=== PATIENT | female | born 1935 | race Caucasian/White ===

== ENCOUNTER 2017-10-15 10:00 | Observation (INO) | payer MEDICARE, BC, SELFPAY ==
[2017-10-15] VITALS (11 sets, daily range): BP systolic 135–193; BP diastolic 63–91; PULSE 61–80; RESP 15–21; TEMP 35.8–37; O2SAT 95–99; BMI 33.0; BMI 32.4
--- NOTE | 2017-10-15 10:19 | EKG12_ITS ---
Test Reason : FATIGUE Blood Pressure : / mmHG Vent. Rate : 061 BPM Atrial Rate : 061 BPM P-R Int : 170 ms QRS Dur : 084 ms QT Int : 366 ms P-R-T Axes : 022 020 000 degrees QTc Int : 368 ms Normal sinus rhythm Nonspecific T wave abnormality Confirmed by KEVEN PATTERSON, CLARISA ([id number]), fashion editor FREDERICK JAMES ([id number]) on 10/19/2017 1:03:19 PM Referred By: LANCE Confirmed By:CLARISA BACA MD
--- NOTE | 2017-10-15 10:22 | RAD_ITS ---
STUDY: X-RAY CHEST REASON FOR EXAM: Female, 81 years old. Shortness of breath, feeling faint TECHNIQUE: Single AP portable view of the chest. COMPARISON: None. FINDINGS: The vascular markings are mildly prominent. There is trace blunting of the right cardiophrenic angle. There is no demonstrated pleural abnormality. There is mild cardiac enlargement. Normal mediastinum and willa. Normal visualized pulmonary arteries. There is atherosclerotic calcification of the aortic arch with tortuosity. There are diffuse degenerative changes of the visualized thoracic spine. Normal visualized ribs, clavicles, and shoulders. There is no demonstrated abnormality of the visualized soft tissue structures of the upper abdomen. RAD/Chest 1 View (Portable) IMPRESSION: Findings suspicious for mild vascular congestion. Right middle lobe atelectasis. Cardiomegaly. Electronically Signed: Agueda Blood MD at 11:18 EDT Tel , Service support ,
--- NOTE | 2017-10-15 10:25 | ED.DCSUM_ITS ---
- ER Visit Summary Date of Service: 10/15/17 Chief Complaint: Feeling faint History of Present Illness: The patient is a 81 F who states she was sitting at the breakfast table this morning approximately hour and a half prior to arrival and states she suddenly felt lightheaded as if she may pass out. She denies having chest pain, palpitations, shortness of breath, or headache during the episode. She states she had a similar episode last summer that was attributed to dehydration. Past history significant for diabetes, hypertension, high cholesterol, and RLS. She has had cardiac bypass surgery and cardiac stent. Physical Examination: Blood pressure is 193/88, temperature 96.4, heart rate 80 , respiratory rate 15, pulse ox 97% on room air. Patient is in no acute distress and is nontoxic appearing. Head and neck examination is normal. Heart is regular rate and rhythm. Palpable pulses are noted throughout. Lungs are clear with good air movement throughout. Abdomen is soft and nontender. Bowel sounds are noted. Extremity examination is unremarkable with full range of motion. Neurologic examination reveals no focal deficits. Test Results: EKG is sinus at 61 with nonspecific T-wave flattening. Chest x- ray shows mild vascular congestion. There is evidence of right middle lobe atelectasis. CBC and chemistry studies are remarkable for glucose of 183, BUN 24, creatinine 1.53. I do not have prior values available to compare. Urinalysis is unremarkable. Troponin is less than 0.015. Emergency Department Course and Treatment: Patient is given IV fluids. On repeat examination she states that after she ambulated to the restroom and back she felt short of breath. Nursing staff was with her and placed her on the monitor with no change in her vital signs. Patient then tells me after the nurse left the room she did get lightheaded again and had chest pressure into her back slightly. Those symptoms are now completely resolved and she has no complaints currently. In light of this d-dimer is added. It is 0.61, which is normal when adjusted for age. Patient will be admitted for further monitoring. Treatment Plan: [] Disposition: Admit Impression: Near syncope This note was generated with [employer] dictation software. It may contain incorrect words, spelling, and punctuation that were not noted in review of the chart prior to signing ED Disposition - Plan for ED Patient: Chief Complaint: Fatigue
[2017-10-15 10:31] LABS: Absolute Lymphocyte Count 2.35 X10^3/ul (0.83-4.51); Absolute Neutrophil Count 3.8 X10^3/uL (2.0-7.7); Basophil# 0.03 X10^3/uL; Basophil% 0.4 % (0-1); Eosinophil# 0.23 X10^3/uL; Eosinophils% 3.3 % (0-5); Hematocrit 41.4 % (37-47); Hemoglobin 13.6 g/dl (12.0-15.0); Lymphocyte # 2.35 X10^3/ul (4.0); Lymphocyte % 33.7 % (19-41); Mean Corp Hgb Conc 32.9 g/gl (32-36); Mean Corpuscular Hgb 30.3 pg (27.0-32.0); Mean Corpuscular Volume 92.2 fL (81-99); Mean Platelet Vol. 9.9 fl (6.2-12.0); Monocyte# 0.52 X10^3/uL; Monocyte% 7.5 % (0-10); Neutrophil # 3.83 X10^3/uL (2.7-7.7); Platelet Count 259 K/mm3 (150-450); RBC Distribution Width CV 12.3 % (11.6-14.6); RBC Distribution Width SD 41.6 fl (35.1-43.9); Red Blood Count 4.49 M/mm3 (4.2-5.4)
[2017-10-15 10:32] LABS: POSITIVE COUNT NO; POSITIVE DIFFERENTIAL NO; POSITIVE MORPHOLOGY NO
[2017-10-15] MEDS: 0.9% Normal Saline 1,000 ML 150 ML IV (10:33)
[2017-10-15 10:49] LABS: Anion Gap 9 (5-15); BUN 24 mg/dL (7-18); BUN/Creat Ratio 15.7 RATIO (10-20); Calcium,Total 9.6 mg/dL (8.5-10.1); Chloride 102 mmol/L (98-107); Creatinine, Serum 1.53 mg/dL (0.55-1.02); EST Glomerular Filtration Rate 35 mL/min (>60); Est Glom Filt Rate - Afr Amer 42 mL/min (>60); Glucose 183 mg/dL (74-106); Potassium 3.8 mmol/L (3.5-5.1); Sodium Level 137 mmol/L (136-145)
[2017-10-15 11:13] LABS: Mucous, Urine 0 SEEN /hpf (<or=2+); Red Blood Cells-Urine 0 SEEN /hpf (0-5)
[2017-10-15 11:18] LABS: Color, Urine Yellow (Yellow); Glucose, Dipstick Normal (Normal); Ketone-Dipstick Negative (Negative); Leukocyte Esterase-Dipstick 25 /ul (Negative); Nitrite-Dipstick Negative (Negative); Occult Blood-Urine 25 /ul (Negative); Protein-Dipstick Negative (Negative); Urine Bilirubin Dipstick Negative (Negative); Urine Clarity Clear (Clear); Urine Urobilinogen Normal (Normal)
[2017-10-15 11:24] LABS: Bacteria RARE /hpf (None Seen); Squamous Epithelial Cells - UA 0-5 SEEN /hpf (5-10); White Blood Cells 0-5 SEEN /hpf (0-5)
[2017-10-15 12:07] LABS: D-Dimer Quantitative (DVT/PE) 0.61 FEU/ug/m (0.27-0.49)
--- NOTE | 2017-10-15 12:19 | ECHOCS_ITS ---
Reason For Study: Syncope Procedure This was a 2D Doppler, Color Flow transthoracic echocardiogram. Exam performed portable in patient room. Left Ventricle Normal LV size. Left ventricular systolic function is normal. The estimated ejection fraction is 65 %. Transmitral diastolic flow velocities suggest mild (stage 1) diastolic dysfunction (reversed pattern). No regional wall motion abnormalities noted. Right Ventricle Normal RV size. Normal systolic function. Atria Normal left atrium. Normal right atrium. Mitral Valve Normal mitral valve. Trivial eccentric mitral valve insufficiency. Tricuspid Valve Normal tricuspid valve. Mild (1+) tricuspid valve insufficiency. Pulmonary artery systolic pressure is 30 mmHg. Aortic Valve Trisinus/trileaflet aortic valve. Mild focal aortic valve calcification. Trivial aortic valve insufficiency. Pulmonic Valve The pulmonic valve is not well visualized. Great Vessels Normal aortic root. The pulmonary artery is normal size. Normal inferior vena cava. Pericardium/Pleural No pericardial effusion. Medication Diluted definity 4ml given slow IV push to enhance endocardial definition. MMode/2D Measurements & Calculations LVIDd: 4.9 cm IVSd: 1.0 cm LVOT diam: 2.0 cm LVIDs: 3.0 cm LVPWd: 0.73 cm LVOT area: 3.1 cm2 FS: 37.4 % Ao root diam: 2.9 cm LAV(MOD-sp4): 37.5 ml LA dimension: 3.6 cm LA A4 area: 14.0 cm2 RA A4 area: 15.6 cm2 Time Measurements MV dec time: 0.25 sec Doppler Measurements & Calculations MV E max denny: 81.9 cm/sec Lat Peak E' Denny: 9.9 cm/sec Med Peak E' Denny: 10.5 cm/sec MV A max denny: 103.4 cm/sec E/E' lat: 8.2 E/E' med: 7.8 MV E/A: 0.79 MV V2 max: 104.0 cm/sec MV P1/2t max denny: 97.3 cm/sec Ao V2 max: 205.2 cm/sec MV max P.3 mmHg MV P1/2t: 71.2 msec Ao max P.9 mmHg MV V2 mean: 63.2 cm/sec MV dec slope: 400.2 cm/sec2 Ao V2 mean: 124.7 cm/sec MV mean P.8 mmHg MVA(P1/2t): 3.1 cm2 Ao mean P.4 mmHg MV V2 VTI: 28.7 cm Ao V2 VTI: 44.5 cm MVA(VTI): 3.6 cm2 VICKY(I,D): 2.3 cm2 VICKY(V,D): 1.8 cm2 LV V1 max: 119.3 cm/sec SV(LVOT): 102.2 ml PA V2 max: 111.7 cm/sec LV V1 max P.7 mmHg LV V1 mean P.3 mmHg LV V1 mean: 85.6 cm/sec LV V1 VTI: 32.5 cm TR max denny: 261.4 cm/sec TR max P.3 mmHg Interpretation Summary Normal LV size. Left ventricular systolic function is normal. The estimated ejection fraction is 65 %. Transmitral diastolic flow velocities suggest mild (stage 1) diastolic dysfunction (reversed pattern). Mild (1+) tricuspid valve insufficiency. Ordering Physician: Heath Barreto Referring Physician: Ernestina PCP Performed By: José Miguel Noonan RCS
--- NOTE | 2017-10-15 13:08 | PCM.HP.STD ---
Problem List (1) Pre-syncope Status: Acute (2) Positive D dimer Status: Acute (3) DM2 (diabetes mellitus, type 2) Status: Chronic Qualifiers: Diabetes mellitus emt intermediate insulin use: without emt intermediate use (4) CAD (coronary artery disease) Status: Chronic Qualifiers: Coronary Disease-Associated Artery/Lesion type: [place] artery (5) Essential (primary) hypertension Status: Chronic (6) Renal failure Status: Acute Qualifiers: Renal failure chronicity: unspecified chronicity Qualified Code(s): N19 - Unspecified kidney failure (7) BMI 33.0-33.9,adult Status: Chronic History of Present Illness Date of Admission: 10/15/17 Chief Complaint: Feeling faint The patient is a 81 year old F with past medical history significant for CAD with previous stent placement, hypertension, diabetes mellitus type 2 who presents with feeling of lightheadedness. Patient symptoms occurred while having breakfast. Patient denied any shortness of breath no nausea no vomiting. Patient had recently traveled from [place] to [place] on a 10 hour journey.. Patient was noted to have elevated d-dimer whilst in the emergency department however CT scan was not PCU since the d-dimer was within normal range when adjusted for age. Patient also did have another episode of fainting spell in the ED at this time associated with chest discomfort located in the retrosternal region radiating to the back to both arms. Her initial set of cardiac enzymes came back unremarkable however given her presentation patient was admitted to a monitored bed for subsequent workup. Past Medical History Past Medical History (Chronic Problems): Chronic Problems DM2 (diabetes mellitus, type 2) (Chronic) CAD (coronary artery disease) (Chronic) Essential (primary) hypertension (Chronic) BMI 33.0-33.9,adult (Chronic) Allergies No Known Allergies Allergy (Verified 10/15/17 10:05) Home Medications: Ambulatory Orders Medication Instructions Recorded Alpha Lipoic Acid 600 mg PO DAILY 10/15/17 Atenolol [Tenormin] 25 mg PO DAILY 10/15/17 Cyanocobalamin (Vitamin B-12) 1,000 mcg PO DAILY 10/15/17 [Vitamin B-12] Linagliptin [Tradjenta] 5 mg PO DAILY 10/15/17 Losartan Potassium 50 mg PO DAILY 10/15/17 Methimazole [Tapazole] 2.5 mg PO DAILY 10/15/17 Risedronate Sodium [Actonel] 150 mg PO UD 10/15/17 Simvastatin 40 mg PO DAILY 10/15/17 Smoking Status: Former smoker - *Family History Maternal History Items: No pertinent history Review of Systems Constitutional: Denies: Anorexia, Chills, Fever, Night Sweats, Weight Change HEENT: Denies: Head Aches, Sinus Congestion, Sinus Drainage Cardiovascular: Reports: Chest Pain, Light Headedness, Syncope. Denies: Orthopnea, Palpitations, Paroxysmal Noc. Dyspnea Respiratory: Denies: Cough, Shortness of breath at rest, Shortness of breath upon exertion, Sputum production Gastrointestinal: Denies: Abdominal Pain, Hematemesis, Hematochezia, Nausea, Melena, Vomiting Genitourinary: Denies: Dysuria, Frequency, Hematuria, Urgency Musculoskeletal: Denies: Joint Pain, Joint Tenderness Skin: Denies: Rash Neurological: Denies: Focal weakness, Numbness, Tingling Psychiatric: Denies: Homicidal Ideations, Suicidal Ideations Hematologic/ Lymphatic: Denies: Easy Bruising, Easy Bleeding VTE Information - Inpt Only VTE Present on Admission: No VTE Mechan Device Prophylaxis: Knee High LAM Hose VTE Pharm Prophylaxis ordered?: Yes Patient Problems: Active and Suspected Problems Pre-syncope (Acute) Positive D dimer (Acute) Renal failure (Acute) Objective: GENERAL: cooperative . HEENT: Clear conjunctiva, NECK; supple, normal thyroid, no distended JVD. CHEST: Diminished to auscultation bilaterally, HEART: Regular S1 S2, no audible murmurs ABDOMEN: soft, non-tender, normoactive bowel sounds, RECTAL: deferred EXTREMITIES: No edema, no clubbing, no cyanosis. 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 SKIN: No Rash - Physical Exam Vital Signs Temp Pulse Resp BP Pulse Ox 96.4 F L 68 18 148/70 H 95 10/15/17 10:01 10/15/17 12:02 10/15/17 12:02 10/15/17 12:02 10/15/17 12:02 Oxygen Delivery Method Room Air Weight: 79.4 kg Body Mass Index (BMI) 33.0 Laboratory Tests Past 24 Hrs 10/15/17 10/15/17 10/15/17 10:23 10:23 10:23 WBC 7.0 RBC 4.49 Hgb 13.6 Hct 41.4 MCV 92.2 MCH 30.3 MCHC 32.9 RDW 12.3 RDW Differential 41.6 Plt Count 259 MPV 9.9 Immature Gran % (Auto) 0.100 Neut % (Auto) 55.0 Lymph % (Auto) 33.7 [place] % (Auto) 7.5 Eos % (Auto) 3.3 Baso % (Auto) 0.4 Absolute Neuts (auto) 3.8 Absolute Lymphs (auto) 2.35 Total Counted Not Reportable D-Dimer Quant (PE/DVT) 0.61 H* Sodium 137 Potassium 3.8 Chloride 102 Carbon Dioxide 26.0 Anion Gap 9 BUN 24 H Creatinine 1.53 H Estim Creat Clear Calc 22.50 Est GFR (MDRD) Af Amer 42 L Est GFR (MDRD) Non-Af 35 L BUN/Creatinine Ratio 15.7 Glucose 183 H Calcium 9.6 Troponin I < 0.015 Urine Color Urine Clarity Urine pH Ur Specific [place] Urine Protein Urine Glucose (UA) Urine Ketones Urine Occult Blood Urine Nitrite Urine Bilirubin Urine Urobilinogen Ur Leukocyte Esterase Urine RBC Urine WBC Ur Squamous Epith Cells Urine Bacteria Urine Mucus 10/15/17 11:05 WBC RBC Hgb Hct MCV MCH MCHC RDW RDW Differential Plt Count MPV Immature Gran % (Auto) Neut % (Auto) Lymph % (Auto) [place] % (Auto) Eos % (Auto) Baso % (Auto) Absolute Neuts (auto) Absolute Lymphs (auto) Total Counted D-Dimer Quant (PE/DVT) Sodium Potassium Chloride Carbon Dioxide Anion Gap BUN Creatinine Estim Creat Clear Calc Est GFR (MDRD) Af Amer Est GFR (MDRD) Non-Af BUN/Creatinine Ratio Glucose Calcium Troponin I Urine Color Yellow Urine Clarity Clear Urine pH 6.0 Ur Specific [place] 1.010 Urine Protein Negative Urine Glucose (UA) Normal Urine Ketones Negative Urine Occult Blood 25 H Urine Nitrite Negative Urine Bilirubin Negative Urine Urobilinogen Normal Ur Leukocyte Esterase 25 H Urine RBC 0 SEEN Urine WBC 0-5 SEEN Ur Squamous Epith Cells 0-5 SEEN Urine Bacteria RARE Urine Mucus 0 SEEN Assessment/Plan All Active Problems Pre-syncope (Acute) Positive D dimer (Acute) Renal failure (Acute) Patient is a 81 year old lady with past medical history cigar for CAD, hypertension, diabetes mellitus type 2 presented with presyncope 1. Presyncope: Patient has been admitted to a monitored bed for continuous telemetry, as part of a management ordered a 2D echo cardiac enzymes. Patient also had elevated d-dimer on admission in view of her recent long travel CTA of the chest was ordered to rule out VTE as a possible cause of her presyncope 2. CAD with previous stent placement; patient is on both beta blockers as well as ARB 3. Renal failure baseline creatinine unknown patient losartan was held resuscitated with IV fluids with subsequent BMP ordered for the morning 4. Diabetes mellitus type 2 patient is on Tradjenta did continue and also placed on Accu-Cheks before meals and at bedtime with sliding scale coverage 5. Hypertension-blood pressure controlled, home medications except for losartan continued with dose adjustment as needed 6. Elevated d-dimer patient was empirically started on therapeutic Lovenox while CTA of the chest after rehydration ordered to rule out PTE 7. Obesity with BMI of 33.1 lifestyle modification including weight loss advised 8. DVT prophylaxis patient is on Lovenox Active Medications Acetaminophen (Tylenol) 650 mg PO Q6H PRN PRN PRN Reason: Mild Pain (scale 0-3)/T>100.7 Atenolol (Tenormin (Beta Dominique)) 25 mg PO DAILY CONCEPCION Cyanocobalamin (Vitamin B12) 1,000 mcg PO DAILY CONCEPCION Dextrose (D50w Syringe) 0 gm IV X1 PRN; Protocol PRN Reason: Hypoglycemia Docusate Sodium (Colace) 200 mg PO BID PRN PRN PRN Reason: Constipation Enoxaparin Sodium (Lovenox) 80 mg 1 mg/kg (80 mg) SC Q12 CONCEPCION Glucagon () 1 mg IM .X1 PRN PRN Reason: Hypoglycemia Sodium Chloride () 1,000 mls @ 150 mls/hr IV .Q6H40M [facility] Last Admin: 10/15/17 10:33 Dose: 150 mls/hr Potassium Chloride/Sodium Chloride (Kcl 20meq In 0.45% Ns 1000ml) 1,000 mls @ 150 mls/hr IV .Q6H40M [facility] Stop: 10/16/17 08:19 Insulin Human Lispro (Humalog Kwikpen (Bkc)) 0 unit SQ ACHS CONCEPCION PRN Reason: Protocol Linagliptin (Tradjenta) 5 mg PO DAILY CONCEPCION Magnesium Hydroxide (Milk Of Magnesia) 30 ml PO DAILY PRN PRN Reason: Constipation Non-Formulary Medication (Methimazole) 2.5 mg PO DAILY CONCEPCION Non-Formulary Medication (Simvastatin [Simvastatin]) 40 mg PO DAILY CONCEPCION Oxycodone HCl (Oxyir) 5 mg PO Q4H PRN PRN PRN Reason: Moderate Pain (pain scale 4-5) Prochlorperazine Edisylate (Compazine Iv) 10 mg IV Q6H PRN PRN PRN Reason: Nausea/Vomiting Code Visit OBSV E&M: 73104 Initial observation care L3
--- NOTE | 2017-10-15 13:20 | HP.PCM_ITS ---
Problem List (1) Pre-syncope Status: Acute (2) Positive D dimer Status: Acute (3) DM2 (diabetes mellitus, type 2) Status: Chronic Qualifiers: Diabetes mellitus terminal make up operator insulin use: without terminal make up operator use (4) CAD (coronary artery disease) Status: Chronic Qualifiers: Coronary Disease-Associated Artery/Lesion type: [place] artery (5) Essential (primary) hypertension Status: Chronic (6) Renal failure Status: Acute Qualifiers: Renal failure chronicity: unspecified chronicity Qualified Code(s): N19 - Unspecified kidney failure (7) BMI 33.0-33.9,adult Status: Chronic History of Present Illness Date of Admission: 10/15/17 Chief Complaint: Feeling faint The patient is a 81 year old F with past medical history significant for CAD with previous stent placement, hypertension, diabetes mellitus type 2 who presents with feeling of lightheadedness. Patient symptoms occurred while having breakfast. Patient denied any shortness of breath no nausea no vomiting. Patient had recently traveled from [place] to [place] on a 10 hour journey.. Patient was noted to have elevated d-dimer whilst in the emergency department however CT scan was not PCU since the d-dimer was within normal range when adjusted for age. Patient also did have another episode of fainting spell in the ED at this time associated with chest discomfort located in the retrosternal region radiating to the back to both arms. Her initial set of cardiac enzymes came back unremarkable however given her presentation patient was admitted to a monitored bed for subsequent workup. Past Medical History Past Medical History (Chronic Problems): Chronic Problems DM2 (diabetes mellitus, type 2) (Chronic) CAD (coronary artery disease) (Chronic) Essential (primary) hypertension (Chronic) BMI 33.0-33.9,adult (Chronic) Allergies No Known Allergies Allergy (Verified 10/15/17 10:05) Home Medications: Ambulatory Orders Medication Instructions Recorded Alpha Lipoic Acid 600 mg PO DAILY 10/15/17 Atenolol [Tenormin] 25 mg PO DAILY 10/15/17 Cyanocobalamin (Vitamin B-12) 1,000 mcg PO DAILY 10/15/17 [Vitamin B-12] Linagliptin [Tradjenta] 5 mg PO DAILY 10/15/17 Losartan Potassium 50 mg PO DAILY 10/15/17 Methimazole [Tapazole] 2.5 mg PO DAILY 10/15/17 Risedronate Sodium [Actonel] 150 mg PO UD 10/15/17 Simvastatin 40 mg PO DAILY 10/15/17 Smoking Status: Former smoker - *Family History Maternal History Items: No pertinent history Review of Systems Constitutional: Denies: Anorexia, Chills, Fever, Night Sweats, Weight Change HEENT: Denies: Head Aches, Sinus Congestion, Sinus Drainage Cardiovascular: Reports: Chest Pain, Light Headedness, Syncope. Denies: Orthopnea, Palpitations, Paroxysmal Noc. Dyspnea Respiratory: Denies: Cough, Shortness of breath at rest, Shortness of breath upon exertion, Sputum production Gastrointestinal: Denies: Abdominal Pain, Hematemesis, Hematochezia, Nausea, Melena, Vomiting Genitourinary: Denies: Dysuria, Frequency, Hematuria, Urgency Musculoskeletal: Denies: Joint Pain, Joint Tenderness Skin: Denies: Rash Neurological: Denies: Focal weakness, Numbness, Tingling Psychiatric: Denies: Homicidal Ideations, Suicidal Ideations Hematologic/ Lymphatic: Denies: Easy Bruising, Easy Bleeding VTE Information - Inpt Only VTE Present on Admission: No VTE Mechan Device Prophylaxis: Knee High LAM Hose VTE Pharm Prophylaxis ordered?: Yes Patient Problems: Active and Suspected Problems Pre-syncope (Acute) Positive D dimer (Acute) Renal failure (Acute) Objective: GENERAL: cooperative . HEENT: Clear conjunctiva, NECK; supple, normal thyroid, no distended JVD. CHEST: Diminished to auscultation bilaterally, HEART: Regular S1 S2, no audible murmurs ABDOMEN: soft, non-tender, normoactive bowel sounds, RECTAL: deferred EXTREMITIES: No edema, no clubbing, no cyanosis. 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 SKIN: No Rash - Physical Exam Vital Signs Temp Pulse Resp BP Pulse Ox 96.4 F L 68 18 148/70 H 95 10/15/17 10:01 10/15/17 12:02 10/15/17 12:02 10/15/17 12:02 10/15/17 12:02 Oxygen Delivery Method Room Air Weight: 79.4 kg Body Mass Index (BMI) 33.0 Laboratory Tests Past 24 Hrs 10/15/17 10/15/17 10/15/17 10:23 10:23 10:23 WBC 7.0 RBC 4.49 Hgb 13.6 Hct 41.4 MCV 92.2 MCH 30.3 MCHC 32.9 RDW 12.3 RDW Differential 41.6 Plt Count 259 MPV 9.9 Immature Gran % (Auto) 0.100 Neut % (Auto) 55.0 Lymph % (Auto) 33.7 [place] % (Auto) 7.5 Eos % (Auto) 3.3 Baso % (Auto) 0.4 Absolute Neuts (auto) 3.8 Absolute Lymphs (auto) 2.35 Total Counted Not Reportable D-Dimer Quant (PE/DVT) 0.61 H* Sodium 137 Potassium 3.8 Chloride 102 Carbon Dioxide 26.0 Anion Gap 9 BUN 24 H Creatinine 1.53 H Estim Creat Clear Calc 22.50 Est GFR (MDRD) Af Amer 42 L Est GFR (MDRD) Non-Af 35 L BUN/Creatinine Ratio 15.7 Glucose 183 H Calcium 9.6 Troponin I < 0.015 Urine Color Urine Clarity Urine pH Ur Specific [place] Urine Protein Urine Glucose (UA) Urine Ketones Urine Occult Blood Urine Nitrite Urine Bilirubin Urine Urobilinogen Ur Leukocyte Esterase Urine RBC Urine WBC Ur Squamous Epith Cells Urine Bacteria Urine Mucus 10/15/17 11:05 WBC RBC Hgb Hct MCV MCH MCHC RDW RDW Differential Plt Count MPV Immature Gran % (Auto) Neut % (Auto) Lymph % (Auto) [place] % (Auto) Eos % (Auto) Baso % (Auto) Absolute Neuts (auto) Absolute Lymphs (auto) Total Counted D-Dimer Quant (PE/DVT) Sodium Potassium Chloride Carbon Dioxide Anion Gap BUN Creatinine Estim Creat Clear Calc Est GFR (MDRD) Af Amer Est GFR (MDRD) Non-Af BUN/Creatinine Ratio Glucose Calcium Troponin I Urine Color Yellow Urine Clarity Clear Urine pH 6.0 Ur Specific [place] 1.010 Urine Protein Negative Urine Glucose (UA) Normal Urine Ketones Negative Urine Occult Blood 25 H Urine Nitrite Negative Urine Bilirubin Negative Urine Urobilinogen Normal Ur Leukocyte Esterase 25 H Urine RBC 0 SEEN Urine WBC 0-5 SEEN Ur Squamous Epith Cells 0-5 SEEN Urine Bacteria RARE Urine Mucus 0 SEEN Assessment/Plan All Active Problems Pre-syncope (Acute) Positive D dimer (Acute) Renal failure (Acute) Patient is a 81 year old lady with past medical history cigar for CAD, hypertension, diabetes mellitus type 2 presented with presyncope 1. Presyncope: Patient has been admitted to a monitored bed for continuous telemetry, as part of a management ordered a 2D echo cardiac enzymes. Patient also had elevated d-dimer on admission in view of her recent long travel CTA of the chest was ordered to rule out VTE as a possible cause of her presyncope 2. CAD with previous stent placement; patient is on both beta blockers as well as ARB 3. Renal failure baseline creatinine unknown patient losartan was held resuscitated with IV fluids with subsequent BMP ordered for the morning 4. Diabetes mellitus type 2 patient is on Tradjenta did continue and also placed on Accu-Cheks before meals and at bedtime with sliding scale coverage 5. Hypertension-blood pressure controlled, home medications except for losartan continued with dose adjustment as needed 6. Elevated d-dimer patient was empirically started on therapeutic Lovenox while CTA of the chest after rehydration ordered to rule out PTE 7. Obesity with BMI of 33.1 lifestyle modification including weight loss advised 8. DVT prophylaxis patient is on Lovenox Active Medications Acetaminophen (Tylenol) 650 mg PO Q6H PRN PRN PRN Reason: Mild Pain (scale 0-3)/T>100.7 Atenolol (Tenormin (Beta Dominique)) 25 mg PO DAILY CONCEPCION Cyanocobalamin (Vitamin B12) 1,000 mcg PO DAILY CONCEPCION Dextrose (D50w Syringe) 0 gm IV X1 PRN; Protocol PRN Reason: Hypoglycemia Docusate Sodium (Colace) 200 mg PO BID PRN PRN PRN Reason: Constipation Enoxaparin Sodium (Lovenox) 80 mg 1 mg/kg (80 mg) SC Q12 CONCEPCION Glucagon () 1 mg IM .X1 PRN PRN Reason: Hypoglycemia Sodium Chloride () 1,000 mls @ 150 mls/hr IV .Q6H40M [facility] Last Admin: 10/15/17 10:33 Dose: 150 mls/hr Potassium Chloride/Sodium Chloride (Kcl 20meq In 0.45% Ns 1000ml) 1,000 mls @ 150 mls/hr IV .Q6H40M [facility] Stop: 10/16/17 08:19 Insulin Human Lispro (Humalog Kwikpen (Bkc)) 0 unit SQ ACHS CONCEPCION PRN Reason: Protocol Linagliptin (Tradjenta) 5 mg PO DAILY CONCEPCION Magnesium Hydroxide (Milk Of Magnesia) 30 ml PO DAILY PRN PRN Reason: Constipation Non-Formulary Medication (Methimazole) 2.5 mg PO DAILY CONCEPCION Non-Formulary Medication (Simvastatin [Simvastatin]) 40 mg PO DAILY CONCEPCION Oxycodone HCl (Oxyir) 5 mg PO Q4H PRN PRN PRN Reason: Moderate Pain (pain scale 4-5) Prochlorperazine Edisylate (Compazine Iv) 10 mg IV Q6H PRN PRN PRN Reason: Nausea/Vomiting Code Visit OBSV E&M: 08193 Initial observation care L3
--- NOTE | 2017-10-15 13:30 | CT_ITS ---
STUDY: CTA CHEST REASON FOR EXAM: Female, 81 years old. Elevated d-dimer syncopal episode RADIATION DOSAGE (If Supplied By Facility): CTDIvol = ( 12.42 ) mGy, DLP = ( 595.90 ) mGycm TECHNIQUE: The examination was performed with the intravenous administration of 75mL ml of Isovue 370 contrast material. Post-processing of the angiographic images was performed, with multiplanar reformation and 3D reconstruction. Individualized dose optimization techniques were used for this CT. COMPARISON: 2017 chest x-ray FINDINGS: Normal enhancement of the main pulmonary artery and right and left pulmonary arteries. Normal enhancement of the bilateral peripheral pulmonary arteries. There is no demonstrated pulmonary embolism. There is atherosclerotic calcification of the aortic arch with tortuosity. There is no demonstrated aortic dissection. Normal heart and pericardium. Normal mediastinum. Normal hilar regions. Normal visualized trachea and bronchi. There a few scattered emphysematous blebs. There is no evidence of focal consolidation pleural effusion pulmonary edema or visualized pneumothorax. Normal pleura. There is a focus of calcification postoperative change in the right breast periphery. There are degenerative changes of thoracic spine. There is hepatic steatosis. There is a hiatal hernia measuring [address]/CTA Chest W/WO Contrast IMPRESSION: No visualized pulmonary embolism. No evidence of aortic dissection No evidence of focal infiltrate. Electronically Signed: Agueda Blood MD at 16:04 EDT Tel , Service support ,
[2017-10-15 13:57] LABS: Magnesium 1.7 mg/dL (1.6-2.6); Thyroid Stim Hormone (TSH) 1.88 uIU/mL (0.358-3.74)
[2017-10-15 14:36] LABS: Bedside Glucose 103 mg/dL (70-110)
[2017-10-15] MEDS: Enoxaparin 80 MG/0.8 ML Syringe SC (15:30)
[2017-10-15 17:50] LABS: Bedside Glucose 130 mg/dL (70-110)
[2017-10-15] MEDS: Atorvastatin Calcium 20 MG Tablet PO (20:24)
[2017-10-15] MEDS: Pramipexole Di-HCl 0.25 MG Tablet PO (20:24)
[2017-10-15 21:36] LABS: Bedside Glucose 138 mg/dL (70-110)
[2017-10-16] VITALS (7 sets, daily range): BP systolic 118–149; BP diastolic 59–79; PULSE 57–82; RESP 12–16; TEMP 36.6–36.7; O2SAT 94–96
--- NOTE | 2017-10-16 05:14 | NURSING ---
pt reported some dizziness while transitioning from lying to sitting during orthostatic vital signs
[2017-10-16 05:27] LABS: Hemoglobin 12.6 g/dl (12.0-15.0); Mean Corp Hgb Conc 33.2 g/gl (32-36); Mean Corpuscular Hgb 30.8 pg (27.0-32.0); Mean Corpuscular Volume 92.9 fL (81-99); Mean Platelet Vol. 10.6 fl (6.2-12.0); Platelet Count 251 K/mm3 (150-450); RBC Distribution Width CV 12.1 % (11.6-14.6); RBC Distribution Width SD 40.2 fl (35.1-43.9); Red Blood Count 4.09 M/mm3 (4.2-5.4); White Blood Count 5.9 K/mm3 (4.4-11.0)
[2017-10-16 06:33] LABS: Scan Indicated on CBC? Y/N NO
[2017-10-16 07:02] LABS: Anion Gap 8 (5-15); BUN 20 mg/dL (7-18); BUN/Creat Ratio 14.3 RATIO (10-20); Calcium,Total 8.6 mg/dL (8.5-10.1); Chloride 109 mmol/L (98-107); EST Glomerular Filtration Rate 39 mL/min (>60); Est Glom Filt Rate - Afr Amer 47 mL/min (>60); Estimated Creatinine Clearance 24.59 ml/min; Glucose 123 mg/dL (74-106); Magnesium 1.8 mg/dL (1.6-2.6); Potassium 4.9 mmol/L (3.5-5.1); Sodium Level 141 mmol/L (136-145)
[2017-10-16 07:06] LABS: Bedside Glucose 123 mg/dL (70-110)
[2017-10-16] MEDS: Enoxaparin 80 MG/0.8 ML Syringe SC (08:56)
[2017-10-16] MEDS: Atenolol 25 MG Tablet PO (08:56)
[2017-10-16] MEDS: METHIMAZOLE 5 MG TABLET 2.5 MG PO (08:56)
[2017-10-16] MEDS: Cyanocobalamin 500 MCG Tablet 1000 MCG PO (08:56)
[2017-10-16] MEDS: LINAGLIPTIN 5 MG TABLET PO (09:40)
[2017-10-16 11:20] LABS: Bedside Glucose 189 mg/dL (70-110)
[2017-10-16] MEDS: Insulin Lispro 100 UNIT/ML INSULN.PEN SQ (11:20)
--- NOTE | 2017-10-16 11:48 | PCM.DC ---
- Discharge Diagnoses Current Active Problems: Current Active and Chronic Problems Pre-syncope (Acute) Positive D dimer (Acute) DM2 (diabetes mellitus, type 2) (Chronic) CAD (coronary artery disease) (Chronic) Essential (primary) hypertension (Chronic) Renal failure (Acute) BMI 33.0-33.9,adult (Chronic) You will use the following diet at home:: Calorie/Carbohydrate Controlled (specify 1200, 1400, etc), Cardiac Discharge Activity: Return to Normal Activity Call your doctor if you observe: Shortness of breath, Dizziness, Fainting spells, Chest pain Allergies/Adverse Reactions: Allergies No Known Allergies Allergy (Verified 10/15/17 10:05) Medications to take at Discharge Aspirin [Aspirin, Baby] 81 mg PO BID 10/15/17 Atenolol [Tenormin] 25 mg PO DAILY 10/15/17 Cyanocobalamin (Vitamin B-12) [Vitamin B-12] 1,000 mcg PO DAILY 10/15/17 Linagliptin [Tradjenta] 5 mg PO DAILY 10/15/17 Losartan Potassium 50 mg PO DAILY 10/15/17 Methimazole [Tapazole] 2.5 mg PO DAILY 10/15/17 Pramipexole Di-HCl [Mirapex] 0.25 mg PO QHS 10/15/17 Risedronate Sodium [Actonel] 150 mg PO QMONTH 10/15/17 Simvastatin 40 mg PO QHS 10/15/17 Primary Care Physician: Care Physician,No Primary [Primary Care Provider] - Please follow up with your Primary Care Physician in: 1 Week Test Results: Test results from this visit will be discussed in further detail at your follow-up appointment, if applicable. Proposed Discharge Date: 10/16/17
--- NOTE | 2017-10-16 11:57 | DCINST_ITS ---
- Discharge Diagnoses Current Active Problems: Current Active and Chronic Problems Pre-syncope (Acute) Positive D dimer (Acute) DM2 (diabetes mellitus, type 2) (Chronic) CAD (coronary artery disease) (Chronic) Essential (primary) hypertension (Chronic) Renal failure (Acute) BMI 33.0-33.9,adult (Chronic) You will use the following diet at home:: Calorie/Carbohydrate Controlled ( specify 1200, 1400, etc), Cardiac Discharge Activity: Return to Normal Activity Call your doctor if you observe: Shortness of breath, Dizziness, Fainting spells , Chest pain Allergies/Adverse Reactions: Allergies No Known Allergies Allergy (Verified 10/15/17 10:05) Medications to take at Discharge Aspirin [Aspirin, Baby] 81 mg PO BID 10/15/17 Atenolol [Tenormin] 25 mg PO DAILY 10/15/17 Cyanocobalamin (Vitamin B-12) [Vitamin B-12] 1,000 mcg PO DAILY 10/15/17 Linagliptin [Tradjenta] 5 mg PO DAILY 10/15/17 Losartan Potassium 50 mg PO DAILY 10/15/17 Methimazole [Tapazole] 2.5 mg PO DAILY 10/15/17 Pramipexole Di-HCl [Mirapex] 0.25 mg PO QHS 10/15/17 Risedronate Sodium [Actonel] 150 mg PO QMONTH 10/15/17 Simvastatin 40 mg PO QHS 10/15/17 Primary Care Physician: Care Physician,No Primary [Primary Care Provider] - Please follow up with your Primary Care Physician in: 1 Week Test Results: Test results from this visit will be discussed in further detail at your follow- up appointment, if applicable. Proposed Discharge Date: 10/16/17
--- NOTE | 2017-10-16 12:07 | PCM.DC.SUM ---
<Anna Ho - Last Filed: 10/16/17 12:17> Discharge Date and Diagnosis Date of Admission: 10/15/17 Date of Discharge: 10/16/17 - Primary Discharge Diagnosis Active and Suspected Problems 1. Pre-syncope 2. Suspected acute kidney injury secondary to dehydration on chronic kidney disease stage III - Secondary Discharge Diagnosis Chronic Problems DM2 (diabetes mellitus, type 2) (Chronic) CAD (coronary artery disease) (Chronic) Essential (primary) hypertension (Chronic) BMI 33.0-33.9,adult (Chronic) Hospital Course and Treatment Imaging Results: Diagnostic Data Chest X-Ray 10/15/17 10:22 IMPRESSION: Findings suspicious for mild vascular congestion. Right middle lobe atelectasis. Cardiomegaly. Electronically Signed: Agueda Blood MD at 11:18 EDT Tel , Service support , Chest CTA 10/15/17 13:30 IMPRESSION: No visualized pulmonary embolism. No evidence of aortic dissection No evidence of focal infiltrate. Electronically Signed: Agueda Blood MD at 16:04 EDT Tel , Service support , Operations: None Procedures: 2-D Echocardiogram Summary of Care Provided: The patient is a 81 year old F admitted 10/15/2017 due to presyncope. Patient states she was having breakfast when she became lightheaded and felt like she was going to pass out. Denies loss of consciousness or syncope. Denies chest pain, shortness of breath. Patient is a resident of [place] and was visiting her son over the weekend. She will be traveling to [place] at discharge where she resides for the summer. Patient denies further dizziness, lightheadedness during admission. Troponin negative. EKG without evidence of ischemia. CT without evidence of pulmonary embolism or aortic dissection. No evidence of infiltrate. Echocardiogram demonstrated an EF of 65%, mild stage I diastolic dysfunction, mild tricuspid valve insufficiency. Orthostatic vitals negative. Patient suspected to have acute kidney injury secondary to dehydration on chronic kidney disease which appears to be stage III. She states she has been told her kidney function has been elevated by her primary care physician and was to be referred to nephrology. Creatinine improved with IV fluids, unclear what patient's baseline is. Repeat BMP in 3 days. Follow-up with primary care physician in 1 week. Patient seen exam prior to discharge. Alert, oriented, no acute distress. Patient denies further dizziness, lightheadedness. Heart rate regular rate and rhythm. Lungs clear. Abdomen soft, nontender. Neuro grossly intact. Skin intact. Vital signs stable. Normal affect. Patient stable for discharge home with follow-up with primary care physician in 1 week. This patient was seen by BELÉN Higgins under the supervision of Dr. Schneider. Discharge Diet: Low fat/ Low Cholesterol, Carb Control Diet Discharge Activity: Return to Normal Activity Call your doctor if you observe: Shortness of breath, Dizziness, Fainting spells, Chest pain Home Medications: Medications to take at Discharge Aspirin [Aspirin, Baby] 81 mg PO BID 10/15/17 Atenolol [Tenormin] 25 mg PO DAILY 10/15/17 Cyanocobalamin (Vitamin B-12) [Vitamin B-12] 1,000 mcg PO DAILY 10/15/17 Linagliptin [Tradjenta] 5 mg PO DAILY 10/15/17 Losartan Potassium 50 mg PO DAILY 10/15/17 Methimazole [Tapazole] 2.5 mg PO DAILY 10/15/17 Pramipexole Di-HCl [Mirapex] 0.25 mg PO QHS 10/15/17 Risedronate Sodium [Actonel] 150 mg PO QMONTH 10/15/17 Simvastatin 40 mg PO QHS 10/15/17 Omeprazole [Prilosec] 20 mg PO DAILY #1 capsule 10/16/17 Following Prescrptions Were Given to Patient: Omeprazole [Prilosec] 20 mg PO DAILY #1 capsule Other Amb Orders: Basic Metabolic Profile (BMP) Location: Laboratory Primary Care Physician: Care Physician,No Primary [Primary Care Provider] - Within 1 Week Please follow up with your Primary Care Physician in: 1 Week Disposition: Home Minutes spent on discharge:: 35 Patient Condition:: Stable Medical Necessity - Tobacco Use Smoking Status: Former smoker Tobacco Use: Cigarettes Meaningful Use Info Meaningful Use Diagnoses (Choose all that apply): None applicable <Titi Schneider - Last Filed: 10/16/17 15:27> Discharge Date and Diagnosis - Secondary Discharge Diagnosis Chronic Problems DM2 (diabetes mellitus, type 2) (Chronic) CAD (coronary artery disease) (Chronic) Essential (primary) hypertension (Chronic) BMI 33.0-33.9,adult (Chronic) Hospital Course and Treatment Operations: None Procedures: 2-D Echocardiogram Summary of Care Provided: Patient seen and examined independently. Data reviewed. I agree with the above note by the nurse practitioner. The patient is a 81 year old F resents with a near syncope episode while at the breakfast table. She had an extensive workup including an echocardiogram, CT angiogram of the chest and check stat x-ray that were all unremarkable. Is my feeling patient had a vasovagal episode. Patient does also have what appears to be chronic kidney disease. Patient has told that she has had some abnormal creatinine numbers but unfortunately those results are in [place] and there are no early available but presumably patient's current creatinine of 1.4 is probably her baseline but once again, I cannot validate that definitively at this time. Patient lives in [place] but is in route to [place] where she can be for the next 3-4 months. I have advised patient to get established with a doctor in the [facility] ([place]) where she will be. Patient apparently is very familiar with the doctors and basic states that they are dismissive but recommended she follow-up nonetheless decision but we do recommend that she do get established with someone since she will be there for several months. Patient was not confirmatory and saying yes or now if that would happen or not. Patient does also complain of heartburn and associated with eating. Patient had been on Zantac in the past but not on a PPI. I recommend patient start on [id number] omeprazole 20 mg daily to see how that helps her. Patient is already taken measures to help with her reflux by having the head of the bed elevated. [] Discharge Diet: Low fat/ Low Cholesterol, Carb Control Diet Discharge Activity: Return to Normal Activity Call your doctor if you observe: Shortness of breath, Dizziness, Fainting spells, Chest pain Please follow up with your Primary Care Physician in: Get a primary care doctor in [place] while your are there. Disposition: Home Minutes spent on discharge:: 35 Patient Condition:: Stable Meaningful Use Info Meaningful Use Diagnoses (Choose all that apply): None applicable Code Visit OBSV E&M: 57747 Observation care discharge
--- NOTE | 2017-10-16 12:15 | DS.PCM_ITS ---
<Anna Ho - Last Filed: 10/16/17 12:17> Discharge Date and Diagnosis Date of Admission: 10/15/17 Date of Discharge: 10/16/17 - Primary Discharge Diagnosis Active and Suspected Problems 1. Pre-syncope 2. Suspected acute kidney injury secondary to dehydration on chronic kidney disease stage III - Secondary Discharge Diagnosis Chronic Problems DM2 (diabetes mellitus, type 2) (Chronic) CAD (coronary artery disease) (Chronic) Essential (primary) hypertension (Chronic) BMI 33.0-33.9,adult (Chronic) Hospital Course and Treatment Imaging Results: Diagnostic Data Chest X-Ray 10/15/17 10:22 IMPRESSION: Findings suspicious for mild vascular congestion. Right middle lobe atelectasis. Cardiomegaly. Electronically Signed: Agueda Blood MD at 11:18 EDT Tel , Service support , Chest CTA 10/15/17 13:30 IMPRESSION: No visualized pulmonary embolism. No evidence of aortic dissection No evidence of focal infiltrate. Electronically Signed: Agueda Blood MD at 16:04 EDT Tel , Service support , Operations: None Procedures: 2-D Echocardiogram Summary of Care Provided: The patient is a 81 year old F admitted 10/15/2017 due to presyncope. Patient states she was having breakfast when she became lightheaded and felt like she was going to pass out. Denies loss of consciousness or syncope. Denies chest pain, shortness of breath. Patient is a resident of [place] and was visiting her son over the weekend. She will be traveling to [place] at discharge where she resides for the summer. Patient denies further dizziness, lightheadedness during admission. Troponin negative. EKG without evidence of ischemia. CT without evidence of pulmonary embolism or aortic dissection. No evidence of infiltrate. Echocardiogram demonstrated an EF of 65%, mild stage I diastolic dysfunction, mild tricuspid valve insufficiency. Orthostatic vitals negative. Patient suspected to have acute kidney injury secondary to dehydration on chronic kidney disease which appears to be stage III. She states she has been told her kidney function has been elevated by her primary care physician and was to be referred to nephrology. Creatinine improved with IV fluids, unclear what patient's baseline is. Repeat BMP in 3 days. Follow-up with primary care physician in 1 week. Patient seen exam prior to discharge. Alert, oriented, no acute distress. Patient denies further dizziness, lightheadedness. Heart rate regular rate and rhythm. Lungs clear. Abdomen soft, nontender. Neuro grossly intact. Skin intact. Vital signs stable. Normal affect. Patient stable for discharge home with follow-up with primary care physician in 1 week. This patient was seen by BELÉN Higgins under the supervision of Dr. Schneider. Discharge Diet: Low fat/ Low Cholesterol, Carb Control Diet Discharge Activity: Return to Normal Activity Call your doctor if you observe: Shortness of breath, Dizziness, Fainting spells , Chest pain Home Medications: Medications to take at Discharge Aspirin [Aspirin, Baby] 81 mg PO BID 10/15/17 Atenolol [Tenormin] 25 mg PO DAILY 10/15/17 Cyanocobalamin (Vitamin B-12) [Vitamin B-12] 1,000 mcg PO DAILY 10/15/17 Linagliptin [Tradjenta] 5 mg PO DAILY 10/15/17 Losartan Potassium 50 mg PO DAILY 10/15/17 Methimazole [Tapazole] 2.5 mg PO DAILY 10/15/17 Pramipexole Di-HCl [Mirapex] 0.25 mg PO QHS 10/15/17 Risedronate Sodium [Actonel] 150 mg PO QMONTH 10/15/17 Simvastatin 40 mg PO QHS 10/15/17 Omeprazole [Prilosec] 20 mg PO DAILY #1 capsule 10/16/17 Following Prescrptions Were Given to Patient: Omeprazole [Prilosec] 20 mg PO DAILY #1 capsule Other Amb Orders: Basic Metabolic Profile (BMP) Location: Laboratory Primary Care Physician: Care Physician,No Primary [Primary Care Provider] - Within 1 Week Please follow up with your Primary Care Physician in: 1 Week Disposition: Home Minutes spent on discharge:: 35 Patient Condition:: Stable Medical Necessity - Tobacco Use Smoking Status: Former smoker Tobacco Use: Cigarettes Meaningful Use Info Meaningful Use Diagnoses (Choose all that apply): None applicable <Titi Schneider - Last Filed: 10/16/17 15:27> Discharge Date and Diagnosis - Secondary Discharge Diagnosis Chronic Problems DM2 (diabetes mellitus, type 2) (Chronic) CAD (coronary artery disease) (Chronic) Essential (primary) hypertension (Chronic) BMI 33.0-33.9,adult (Chronic) Hospital Course and Treatment Operations: None Procedures: 2-D Echocardiogram Summary of Care Provided: Patient seen and examined independently. Data reviewed. I agree with the above note by the nurse practitioner. The patient is a 81 year old F resents with a near syncope episode while at the breakfast table. She had an extensive workup including an echocardiogram, CT angiogram of the chest and check stat x-ray that were all unremarkable. Is my feeling patient had a vasovagal episode. Patient does also have what appears to be chronic kidney disease. Patient has told that she has had some abnormal creatinine numbers but unfortunately those results are in [place] and there are no early available but presumably patient's current creatinine of 1.4 is probably her baseline but once again, I cannot validate that definitively at this time. Patient lives in [place] but is in route to [place] where she can be for the next 3-4 months. I have advised patient to get established with a doctor in the [facility] where she will be. Patient apparently is very familiar with the doctors and basic states that they are dismissive but recommended she follow-up nonetheless decision but we do recommend that she do get established with someone since she will be there for several months. Patient was not confirmatory and saying yes or now if that would happen or not. Patient does also complain of heartburn and associated with eating. Patient had been on Zantac in the past but not on a PPI. I recommend patient start on over-the- counter omeprazole 20 mg daily to see how that helps her. Patient is already taken measures to help with her reflux by having the head of the bed elevated. [] Discharge Diet: Low fat/ Low Cholesterol, Carb Control Diet Discharge Activity: Return to Normal Activity Call your doctor if you observe: Shortness of breath, Dizziness, Fainting spells , Chest pain Please follow up with your Primary Care Physician in: Get a primary care doctor in [place] while your are there. Disposition: Home Minutes spent on discharge:: 35 Patient Condition:: Stable Meaningful Use Info Meaningful Use Diagnoses (Choose all that apply): None applicable Code Visit OBSV E&M: 99283 Observation care discharge
== END 2017-10-16 11:57 | disposition home or self-care (01) ==
LOC: ED 11:01 → PCU 13:03
PROVIDERS: Admitting Provider Internal Medicine; Emergency Provider Emergency Medicine
DX: R55 Syncope and collapse (principal); I25.10 Atherosclerotic heart disease of native coronary artery without angina pectoris; I08.3 Combined rheumatic disorders of mitral, aortic and tricuspid valves; E11.22 Type 2 diabetes mellitus with diabetic chronic kidney disease; I12.9 Hypertensive chronic kidney disease with stage 1 through stage 4 chronic kidney disease, or unspecified chronic kidney disease; N18.3 Chronic kidney disease, stage 3 (moderate); Z87.891 Personal history of nicotine dependence; Z79.899 Other long term (current) drug therapy; Z79.82 Long term (current) use of aspirin; E66.9 Obesity, unspecified; Z68.33 Body mass index [BMI] 33.0-33.9, adult; Z71.3 Dietary counseling and surveillance
CPT/HCPCS: 36415; 71045; 71275; 80048; 81001; 82962; 83735; 84443; 84484; 85025; 85027; 85379; 93005; 93306; 96360; 96361; 96372; 99218; 99284; J7030; Q9957; Q9967; A4216; C8929; G0378